=== PATIENT | female | born 1960 | race Caucasian/White ===

== ENCOUNTER 2022-07-26 11:11 | Inpatient (IN) | payer OTHER ==
[~2022-07-26] VITALS: Ht 162.6 cm; Wt 62.6 kg
[~2022-07-26 11:11] MED LIST: ASPI81CH PO; DICL25ER PO; FISH1000 PO; GABA800 PO; LISHYD2025 PO; TRAM50 PO; ZYRTEC10 M2 PO
[2022-07-26 12:15] LABS: BASOPHILS ABSOLUTE AUTO 0.09 K/mm3 (0.00-0.23); BASOPHILS PERCENT AUTO 1 % (0-2); EOSINOPHILS ABSOLUTE AUTO 0.08 K/mm3 (0.00-0.68); EOSINOPHILS PERCENT AUTO 1 % (0-6); Hematocrit 35.1 % (33.0-51.0); Hemoglobin 12.3 g/dL (11.5-16.0); IMMATURE GRAN ABSOLUTE AUTO 0.11 K/mm3 (0.00-0.10); IMMATURE GRAN PERCENT AUTO 1 % (0-1); LYMPHOCYTES ABSOLUTE AUTO 3.05 K/mm3 (0.84-5.20); LYMPHOCYTES PERCENT AUTO 18 % (21-46); MONOCYTES ABSOLUTE AUTO 1.88 K/mm3 (0.16-1.47); MONOCYTES PERCENT AUTO 11 % (4-13); Mean Corpuscular HGB 30.1 pg (26.0-34.0); Mean Corpuscular Volume 86 fL (80-100); NEUTROPHILS ABSOLUTE AUTO 12.02 K/mm3 (1.96-9.15); NEUTROPHILS PERCENT AUTO 70 % (41-73); Platelet Count 550 K/mm3 (150-400); RDW Coefficient Variation 12.3 % (11.7-14.2); RDW Standard Deviation 38.8 fL (35.1-46.3); Red Blood Cell Count 4.08 M/mm3 (3.80-5.20); White Blood Cell Count 17.23 K/mm3 (4.00-11.30)
[2022-07-26] MEDS ORDERED: HYDROCHLOROTH12.5 MG PO (12:18)
[2022-07-26] MEDS ORDERED: LISI20 PO (12:18)
[2022-07-26] MEDS ORDERED: ESTEST.62T (12:19)
[2022-07-26] MEDS ORDERED: GABA300 PO (12:19)
[2022-07-26] MEDS ORDERED: Lisinopril-Hct1 EAC4 PO (12:39)
[2022-07-26] MEDS ORDERED: ZYRTEC10 M2 PO (12:41)
[2022-07-26 12:45] LABS: Albumin, Blood 3.9 g/dL (3.4-5.0); Albumin/Globulin Ratio 0.9 (0.8-1.8); Bilirubin, Total 0.6 mg/dL (0.1-1.0); Bun/Creatinine Ratio 21.2 (12.0-20.0); Calcium, Blood 10.4 mg/dL (8.5-10.1); Creatinine, Blood 1.79 mg/dL (0.40-1.00); Globulin, Blood 4.4 g/dL (2.2-4.0); Potassium, Blood 3.3 mmol/L (3.5-5.5); Total Protein, Blood 8.3 g/dL (6.4-8.2)
[2022-07-26 14:35] LABS: Source, Urine Straight Cath
[2022-07-26 14:39] LABS: Appearance, Urine Clear (Clear); Bilirubin, Urine Neg (Neg); Blood, Urine Neg (Neg); Color, Urine Yellow (P-Yellow); Glucose Qualitative, Urine Neg (Neg); Ketones, Urine Neg (Neg); Leukocyte Esterase, Urine Neg (Neg); Nitrite, Urine Neg (Neg); Protein, Urine 1+ (Neg); Urobilinogen, Urine NORM (Normal)
--- NOTE | 2022-07-26 18:35 | NUR ---
PATIENT CAME FROM ER TODAY AT 1800. PATIENT IS A&OX4. BP IS SLIGHTLY ELEVATED BUT OTHERWISE VS ARE WNL AND ON RA. PATIENT DENIES PAIN AT THIS TIME. ABD IS TENDER TO TOUCH WITH HYPOACTIVE BOWEL TONES. PATIENT DENIES NAUSEA OR VOMITING AT THIS TIME. NG TUBE IS ON INTERMITTENT SUCTION WITH CLEAR FLUID IN TUBING. ICE CHIPS ARE OKAY PER DR. JIMENEZ. PATIENT IS LAYING IN BED WITH CALL LIGHT IN REACH. FAMILY AT BEDSIDE. THE PLAN IS TO CONTINUE TO MONITOR LABS AND MANAGE PAIN WELL MONITOR NG TUBE OUTPUT.
[2022-07-27 04:04] LABS: BASOPHILS ABSOLUTE AUTO 0.05 K/mm3 (0.00-0.23); BASOPHILS PERCENT AUTO 0 % (0-2); EOSINOPHILS ABSOLUTE AUTO 0.06 K/mm3 (0.00-0.68); EOSINOPHILS PERCENT AUTO 1 % (0-6); Hemoglobin 10.8 g/dL (11.5-16.0); IMMATURE GRAN ABSOLUTE AUTO 0.05 K/mm3 (0.00-0.10); IMMATURE GRAN PERCENT AUTO 0 % (0-1); LYMPHOCYTES ABSOLUTE AUTO 2.61 K/mm3 (0.84-5.20); LYMPHOCYTES PERCENT AUTO 20 % (21-46); MONOCYTES ABSOLUTE AUTO 1.16 K/mm3 (0.16-1.47); MONOCYTES PERCENT AUTO 9 % (4-13); Mean Corpuscular HGB 30.1 pg (26.0-34.0); Mean Corpuscular HGB Conc 34.8 g/dL (31.5-36.5); Mean Corpuscular Volume 86 fL (80-100); Mean Platelet Volume 9.5 fL (9.1-12.4); NEUTROPHILS PERCENT AUTO 70 % (41-73); Platelet Count 468 K/mm3 (150-400); RDW Coefficient Variation 12.3 % (11.7-14.2); RDW Standard Deviation 39.2 fL (35.1-46.3); Red Blood Cell Count 3.59 M/mm3 (3.80-5.20); White Blood Cell Count 12.93 K/mm3 (4.00-11.30)
[2022-07-27 04:26] LABS: Creatinine, Blood 1.24 mg/dL (0.40-1.00); Potassium, Blood 3.5 mmol/L (3.5-5.5)
--- NOTE | 2022-07-27 06:24 | NUR ---
Patient denies nausea and states abdominal pain has gotten better since NG placement; no pain meds requested overnight. Patient slept well. NG to LIS with minimal blood-tinged mucous output. Total NG output overnight 145mL. Abdomen is soft and non-tender, bowel sounds present. Patient is independent in room. No acute safety concerns at this time.
--- NOTE | 2022-07-27 13:14 | NUR ---
ASSUMED CARE OF PATIENT AT THIS TIME. PT UP TO BATHROOM TO DO ADL'S. PT AMBULATED HALLWAY INDEP WITH SIGNIFICANT OTHER. DENIES PAIN OR NAUSEA. TOLERATING NGT CLAMPING. TOLERATING ICE CHIPS. REPORTS PASSING FLATUS. WILL CONTINUE TO MONITOR AND TREAT.
--- NOTE | 2022-07-27 17:50 | NUR ---
PT HAS BEEN STABLE THIS SHIFT. PT REMAINS NPO. NO DRAINAGE IN NGT SINCE LAST SHIFT. PT HAS NO NAUSEA. PASSING FLATUS. APPETITE RETURNING. VOIDING WELL. INDEP IN HALLWAYS AND ROOM. DENIES PAIN. USES CALL LIGHT APPROPRIATELY NEEDED.
--- NOTE | 2022-07-28 06:58 | NUR ---
SHIFT SUMMARY AOX4. VSS. NG TUBE R NARES 150ML CLEAR TO LIGHT RED DRAINAGE THIS SHIFT. REPORTS PASSING GAS, BELCHING, DENIES N/V OR ABD PAIN, NO BM THIS SHIFT. ACTIVE BT. CALL LIGHT IN REACH & PT ABLE TO MAKE NEEDS KNOWN. WILL MONITOR.
[2022-07-28 09:00] LABS: BASOPHILS ABSOLUTE AUTO 0.07 K/mm3 (0.00-0.23); BASOPHILS PERCENT AUTO 1 % (0-2); EOSINOPHILS ABSOLUTE AUTO 0.09 K/mm3 (0.00-0.68); EOSINOPHILS PERCENT AUTO 1 % (0-6); Hematocrit 31.4 % (33.0-51.0); Hemoglobin 10.8 g/dL (11.5-16.0); IMMATURE GRAN ABSOLUTE AUTO 0.04 K/mm3 (0.00-0.10); IMMATURE GRAN PERCENT AUTO 0 % (0-1); LYMPHOCYTES ABSOLUTE AUTO 2.05 K/mm3 (0.84-5.20); LYMPHOCYTES PERCENT AUTO 22 % (21-46); MONOCYTES ABSOLUTE AUTO 1.01 K/mm3 (0.16-1.47); MONOCYTES PERCENT AUTO 11 % (4-13); Mean Corpuscular HGB 30.6 pg (26.0-34.0); Mean Corpuscular HGB Conc 34.4 g/dL (31.5-36.5); Mean Corpuscular Volume 89 fL (80-100); Mean Platelet Volume 9.2 fL (9.1-12.4); NEUTROPHILS ABSOLUTE AUTO 6.04 K/mm3 (1.96-9.15); NEUTROPHILS PERCENT AUTO 65 % (41-73); Platelet Count 469 K/mm3 (150-400); RDW Coefficient Variation 12.5 % (11.7-14.2); RDW Standard Deviation 41.1 fL (35.1-46.3); Red Blood Cell Count 3.53 M/mm3 (3.80-5.20)
[2022-07-28 09:26] LABS: Albumin, Blood 3.3 g/dL (3.4-5.0); Albumin/Globulin Ratio 0.9 (0.8-1.8); Bilirubin, Total 0.3 mg/dL (0.1-1.0); Bun/Creatinine Ratio 12.5 (12.0-20.0); Calcium, Blood 8.9 mg/dL (8.5-10.1); Creatinine, Blood 0.96 mg/dL (0.40-1.00); Globulin, Blood 3.7 g/dL (2.2-4.0); Potassium, Blood 3.3 mmol/L (3.5-5.5)
--- NOTE | 2022-07-28 19:31 | NUR ---
SHIFT SUMMARY BART IS ADMITTED FOR PERFORATED DUODENAL ULCER. NG SET TO LOW INTERMITTENT SUCTION, TOLERATING ICE CHIPS AND TWO ORANGE POPSICLES. INDEPENDENT IN THE ROOM. SHOWERED TODAY. VISITED BY FAMILY. PASSING GAS AND BELCHING, DENIES N/V/ABD PAIN. REPORTS ONLY PAIN IN HER THROAT, PRN CEPACOL LOZENGES PROVIDE RELIEF. a&O X4, ROOM AIR. ABLE TO USE CALL LIGHT TO MAKE NEEDS KNOWN. IV ACCESS TO LEFT WRIST.
[2022-07-29 05:56] LABS: BASOPHILS ABSOLUTE AUTO 0.11 K/mm3 (0.00-0.23); BASOPHILS PERCENT AUTO 1 % (0-2); EOSINOPHILS ABSOLUTE AUTO 0.09 K/mm3 (0.00-0.68); EOSINOPHILS PERCENT AUTO 1 % (0-6); Hematocrit 32.1 % (33.0-51.0); Hemoglobin 10.7 g/dL (11.5-16.0); IMMATURE GRAN ABSOLUTE AUTO 0.04 K/mm3 (0.00-0.10); IMMATURE GRAN PERCENT AUTO 0 % (0-1); LYMPHOCYTES ABSOLUTE AUTO 2.74 K/mm3 (0.84-5.20); LYMPHOCYTES PERCENT AUTO 22 % (21-46); MONOCYTES ABSOLUTE AUTO 1.16 K/mm3 (0.16-1.47); MONOCYTES PERCENT AUTO 10 % (4-13); Mean Corpuscular HGB 29.8 pg (26.0-34.0); Mean Corpuscular HGB Conc 33.3 g/dL (31.5-36.5); Mean Corpuscular Volume 89 fL (80-100); Mean Platelet Volume 9.5 fL (9.1-12.4); NEUTROPHILS ABSOLUTE AUTO 8.09 K/mm3 (1.96-9.15); NEUTROPHILS PERCENT AUTO 66 % (41-73); Platelet Count 481 K/mm3 (150-400); RDW Coefficient Variation 12.6 % (11.7-14.2); RDW Standard Deviation 41.5 fL (35.1-46.3); Red Blood Cell Count 3.59 M/mm3 (3.80-5.20); White Blood Cell Count 12.23 K/mm3 (4.00-11.30)
--- NOTE | 2022-07-29 06:51 | NUR ---
Patient slept well overnight, denies any abdominal pain, nausea, or vomitting. Intermittent throat soreness noted, PRN medication given for relief. NG in place to LIS, 100 mL output for manager night. Output slightly blood tinged mucous. Patient independent in room.
[2022-07-29 07:08] LABS: Albumin, Blood 3.2 g/dL (3.4-5.0); Albumin/Globulin Ratio 0.8 (0.8-1.8); Bilirubin, Total 0.5 mg/dL (0.1-1.0); Bun/Creatinine Ratio 11.4 (12.0-20.0); Calcium, Blood 9.1 mg/dL (8.5-10.1); Creatinine, Blood 0.97 mg/dL (0.40-1.00); Globulin, Blood 3.9 g/dL (2.2-4.0); Potassium, Blood 3.4 mmol/L (3.5-5.5); Total Protein, Blood 7.1 g/dL (6.4-8.2)
--- NOTE | 2022-07-29 10:50 | NUR ---
PT LEAVING WITH IMAGING FOR SMALL BOWEL FOLLOW THROUGH STUDY. NG TUBE CLAMPED AND IV SALINE LOCKED.
--- NOTE | 2022-07-29 15:07 | NUR ---
NG TUBE REMOVED NG TUBE HAS BEEN CLAMPED SINCE APPROXIMATELY 0900. PT TOLERATED SIPS AND CHIPS WITHOUT NAUSEA OR INCREASED PAIN. UPPER GI XRAY REPORT COMPLETED BY RADIOLOGY, DR. JIMENEZ NOTIFIED. NG TUBE REMOVED PER INSTRUCTIONS FROM DR. JIMENEZ. PT PROVIDED WITH CLEAR LIQUIDS TO TRIAL.
[2022-07-29] MEDS ORDERED: AMOCLA875 PO (17:12)
[2022-07-29] MEDS ORDERED: LACT PO (17:13)
--- NOTE | 2022-07-29 18:27 | NUR ---
DISCHARGE PT PROVIDED WITH WRITTEN AND VERBAL DISCHARGE INSTRUCTIONS, SHE REPORTED UNDERSTANDING. PRIOR TO DISCHARGE PT TOLERATED A REGULAR DIET. PAIN MANAGED. BP ELEVATED 168/55, RECHECKED AND WAS 155/49. DR. KRISHNAN NOTIFIED OF ELEVATED BLOOD PRESSURE, PER DR. KRISHNAN OK TO CONTINUE WITH DISCHARGE. PT WAS EDUCATED TO RESUME HER HOME DOSE OF LISINOPRIL TOMORROW ORDERED BY DR. KRISHNAN. PT WAS ALSO EDUCATED ABOUT THE SIGNS AND SYMPTOMS OF LOW AND HIGH BLOOD PRESSURE. PT EDUCATED TO TAKE AND RECORD HER BLOOD PRESSURE 2X PER DAY OVER THE NEXT WEEK IN ORDER TO NOTIFY HER PCP IF SHE HAS IN BP ISSUES. SHE WAS ALSO EDUCATED TO MONITOR AND RECORD ANY SYMPTOMS OF LOW OR HIGH BLOOD PRESSURE IN ORDER TO INFORM HER DOCTOR. PT AMBULATED OUT INDEPENDENTLY AT 1824.
== END 2022-07-29 18:24 | disposition home or self-care (01) | DRG 381 ==
LOC: ER 11:11 → SURS 15:38
PROVIDERS: Emergency Medicine; Internal Medicine; Physician Assistant; ADMIT Internal Medicine
PROC: 0DH67UZ Insertion of Feeding Device into Stomach, Via Natural or Artificial Opening (ICD-10-PCS; principal; 2022-07-26)
DX: K26.1 Acute duodenal ulcer with perforation (principal); E87.1 Hypo-osmolality and hyponatremia; N17.9 Acute kidney failure, unspecified; D72.829 Elevated white blood cell count, unspecified; E87.6 Hypokalemia; G62.9 Polyneuropathy, unspecified; I12.9 Hypertensive chronic kidney disease with stage 1 through stage 4 chronic kidney disease, or unspecified chronic kidney disease; N18.30 Chronic kidney disease, stage 3 unspecified; E86.9 Volume depletion, unspecified; M54.9 Dorsalgia, unspecified; G89.29 Other chronic pain; M25.562 Pain in left knee; R94.5 Abnormal results of liver function studies; Z96.652 Presence of left artificial knee joint; Z88.8 Allergy status to other drugs, medicaments and biological substances; Z79.899 Other long term (current) drug therapy; Z79.811 Long term (current) use of aromatase inhibitors; Z98.890 Other specified postprocedural states; Z87.891 Personal history of nicotine dependence
CPT/HCPCS: 36415; 74177; 74240; 76705; 80048; 80053; 83690; 83735; 85025; 87338; 96365-59; 96367; 96375; 99285-25; A9270; C9113; J0360; J2270; J2405; J2543; J3480; J7030; J7042; Q9967

== ENCOUNTER → 2023-05-20 | Outpatient (CLI) | payer OTHER ==
[~2023-05-20] MED LIST changes: +AMOCLA875 PO; +ESTEST.62T; +GABA300 PO; +HYDCHL25; +HYDROCHLOROTH12.5 MG PO; +LACT PO; +LISI20 PO; +Lisinopril-Hct1 EAC4 PO
[2023-05-20 14:59] LABS: Source, Urine Clean Catch
[2023-05-20 16:32] LABS: Appearance, Urine Clear (Clear); Bilirubin, Urine Neg (Neg); Blood, Urine Neg (Neg); Color, Urine Yellow (P-Yellow); Glucose Qualitative, Urine Neg (Neg); Ketones, Urine Neg (Neg); Leukocyte Esterase, Urine Neg (Neg); Nitrite, Urine Neg (Neg); Protein, Urine Neg (Neg); Urobilinogen, Urine NORM (Normal)
[2023-05-20 16:37] LABS: BASOPHILS ABSOLUTE AUTO 0.05 K/mm3 (0.00-0.23); BASOPHILS PERCENT AUTO 1 % (0-2); EOSINOPHILS PERCENT AUTO 2 % (0-6); Hematocrit 40.2 % (33.0-51.0); Hemoglobin 13.2 g/dL (11.5-16.0); IMMATURE GRAN ABSOLUTE AUTO 0.03 K/mm3 (0.00-0.10); IMMATURE GRAN PERCENT AUTO 1 % (0-1); LYMPHOCYTES ABSOLUTE AUTO 2.27 K/mm3 (0.84-5.20); LYMPHOCYTES PERCENT AUTO 34 % (21-46); MONOCYTES ABSOLUTE AUTO 0.59 K/mm3 (0.16-1.47); MONOCYTES PERCENT AUTO 9 % (4-13); Mean Corpuscular HGB 29.7 pg (26.0-34.0); Mean Corpuscular HGB Conc 32.8 g/dL (31.5-36.5); Mean Corpuscular Volume 90 fL (80-100); Mean Platelet Volume 11.1 fL (9.1-12.4); NEUTROPHILS ABSOLUTE AUTO 3.62 K/mm3 (1.96-9.15); NEUTROPHILS PERCENT AUTO 54 % (41-73); Platelet Count 348 K/mm3 (150-400); RDW Coefficient Variation 12.9 % (11.7-14.2); RDW Standard Deviation 42.6 fL (35.1-46.3); Red Blood Cell Count 4.45 M/mm3 (3.80-5.20); White Blood Cell Count 6.66 K/mm3 (4.00-11.30)
[2023-05-20 18:43] LABS: Alanine Aminotransfer (ALT/SGP 37 U/L (12-78); Albumin, Blood 4.2 g/dL (3.4-5.0); Albumin/Globulin Ratio 1.1 (0.8-1.8); Alk Phos 57 U/L (50-136); Anion Gap 11 mmol/L (6-16); Aspartate Aminotrans (AST/SGOT 32 U/L (12-37); Bilirubin, Total 0.3 mg/dL (0.1-1.0); Blood Urea Nitrogen 18 mg/dL (8-24); Bun/Creatinine Ratio 19.3 (12.0-20.0); CHOL/HDL RATIO 5.1; CO2, Blood 21 mmol/L (21-32); Calcium, Blood 9.3 mg/dL (8.5-10.1); Chloride, Blood 101 mmol/L (98-108); Cholesterol 216 mg/dL (50-200); Creatinine, Blood 0.93 mg/dL (0.40-1.00); Globulin, Blood 3.9 g/dL (2.2-4.0); Glomerular Filtration Rate 68 (60-); Glucose, Blood 96 mg/dL (70-99); HDL Cholesterol 42 mg/dL (>39); LDL/HDL RATIO 3.6; Low Density Lipoprotein Chol 151 mg/dL (0-110); Potassium, Blood 4.2 mmol/L (3.5-5.5); Sodium, Blood 133 mmol/L (136-145); Thyroid Stimulating Hormone 0.736 uIU/mL (0.360-4.800); Total Protein, Blood 8.1 g/dL (6.4-8.2); Triglycerides 113 mg/dL (30-160); Very Low Density Lipoprot Chol 22 mg/dL (6-32)
== END | disposition home or self-care (01) ==
LOC: LAB SHORT 08:30 → LAB 08:30
PROVIDERS: Student in an Organized Health Care Education/Training Program
DX: I12.9 Hypertensive chronic kidney disease with stage 1 through stage 4 chronic kidney disease, or unspecified chronic kidney disease (principal); N18.31 Chronic kidney disease, stage 3a; E78.5 Hyperlipidemia, unspecified
CPT/HCPCS: 80053; 80061; 81003; 84443; 85025

== ENCOUNTER → 2023-08-08 | Outpatient (CLI) | payer OTHER ==
[2023-08-08 13:16] LABS: Creatinine Urine 48.2 mg/dL (27.00-270.00); Microalbumin, Urine Quant. 5.99 mg/L (0.000-20.000)
== END | disposition home or self-care (01) ==
LOC: LAB SHORT 11:41
PROVIDERS: Internal Medicine Nephrology
DX: N18.2 Chronic kidney disease, stage 2 (mild) (principal); D63.1 Anemia in chronic kidney disease; N25.81 Secondary hyperparathyroidism of renal origin; E55.9 Vitamin D deficiency, unspecified; E78.00 Pure hypercholesterolemia, unspecified; R76.9 Abnormal immunological finding in serum, unspecified; R94.5 Abnormal results of liver function studies; R94.6 Abnormal results of thyroid function studies
CPT/HCPCS: 81050; 82043; 82570; 84156

== ENCOUNTER → 2025-03-16 | Outpatient (CLI) | payer MEDICARE, OTHER ==
[2025-03-16 12:11] LABS: Microalbumin, Urine Quant. 9.24 mg/L (0.000-20.000); Protein, Urine Quantitative 6.9 mg/dL (0.0-11.9)
== END | disposition home or self-care (01) ==
LOC: LAB FUT 03-12 10:20 → LAB SHORT 07:30 → LAB 07:30
PROVIDERS: Internal Medicine Nephrology
DX: N18.30 Chronic kidney disease, stage 3 unspecified (principal); N25.81 Secondary hyperparathyroidism of renal origin; D75.1 Secondary polycythemia; E55.9 Vitamin D deficiency, unspecified; E78.00 Pure hypercholesterolemia, unspecified; R76.9 Abnormal immunological finding in serum, unspecified; R94.5 Abnormal results of liver function studies; R94.6 Abnormal results of thyroid function studies
CPT/HCPCS: 81050; 82043; 82570; 84156